=== PATIENT | female | born 1975 | race Caucasian/White ===

== ENCOUNTER 2023-07-13 13:51 | Emergency (ER) | payer OTHER, SELFPAY ==
--- NOTE | ~2023-07-13 | CT_ITS ---
EXAMINATION: CT abdomen pelvis wo con DATE: 07/13/2023 17:49 INDICATION: Right renal stone presenting with right flank pain TECHNIQUE: Computed tomography (CT) of the abdomen and pelvis was performed without intravenous contr ast. Automated exposure control and iterative reconstruction technique were employed. The dose-length product was 344.38 mGy-cm. COMPARISON: None FINDINGS: Normal discoid atelectasis at the posterior sulcus of the right lower lobe. Heart size is normal. No pericardial or pleural effusion. Liver, gallbladder, spleen, pancreas and bilateral adrenal glands ar e normal. There is bilateral renal medullary nephrocalcinosis with 2 mm nonobstructing stone at an up per pole calyx of the left kidney. 4.2 cm cyst at the lower pole of the left kidney. No ureteral ston es or hydronephrosis. Bladder is normal. Bowels including the appendix are normal. There are likely t ubal ligation rings along the left and right broad ligaments. Uterus and bilateral adnexa are otherwi se unremarkable. Pessary versus contraceptive ring and the vaginal vault. No free intraperitoneal gas or fluid. No pathologically enlarged abdominal or pelvic lymphadenopathy. Mild thoracic and lumbar s pondylosis. Right-sided L5 pars interarticularis defect. Osseous fusion across the pubic symphysis. IMPRESSION: 1. Bilateral renal medullary nephrocalcinosis with 2 mm nonobstructing left renal stone. No ureteral stones, hydronephrosis or other acute intra-abdominal/pelvic process. Reviewed, dictated and finalized at location [facility]. [facility] IMPRESSION: 1. Bilateral renal medullary nephrocalcinosis with 2 mm nonobstructing left asia al stone. No ureteral stones, hydronephrosis or other acute intra-abdominal/pel kristy process.
[2023-07-13 14:22] LABS: Basophils Absolute Auto 0.1 K/mm3 (0.0-0.1); Eosinophils Absolute Auto 0.1 K/mm3 (0-0.3); Eosinophils Percent Auto 1.4 % (0-4.4); Hematocrit 45.2 % (37.0-47.0); Immature Granulocyte Absolute 0.01 K/mm3 (0.00-0.031); Immature Granulocyte Percent A 0.1 % (0-0.5); Lymphocytes Absolute Auto 2.28 K/mm3 (0.9-3.2); Lymphocytes Percent Auto 32.5 % (18.3-44.2); Mean Corpuscular Hemoglobin 27.2 pg (26-34); Mean Corpuscular Volume 87.8 fl (80-100); Mean Platelet Volume 11.4 fl (7.4-10.4); Monocytes Absolute Auto 0.6 K/mm3 (0.1-0.6); Monocytes Percent Auto 7.8 % (2.6-8.5); Neutrophils Percent Auto 57.2 % (45.5-73.1); Platelet Count Result 254 k/mm3 (150-375); Red Blood Count 5.15 M/mm3 (4.2-5.4); Red Cell Distribution Width 14.6 % (11.5-14.5)
[2023-07-13 14:39] LABS: Platelet Estimate Adequate (Adequate)
[2023-07-13 14:40] LABS: Appearance Urine Clear (Clear); Bacteria Urine 1+ /hpf; Bilirubin Urine Negative (Negative); Blood Urine 2+ (Negative); Color Urine Yellow (Yellow); Glucose Urine UA Negative (Negative); Ketones Urine Negative (Negative); Leukocyte Esterase Ur Negative LEU/UL (Negative); Nitrate Urine Negative (Negative); Non Pathogenic Casts 0-2; Protein Urine Negative (Negative); Specific Grav Ur 1.026 (1.001-1.035); Squamous Epithelial Cell Urine Few /hpf (Few); Urobilinogen Urine 0.2 mg/dL (<2.0); WBC Urine 0-5 /hpf; pH Urine 6.5 (5.0-9.0)
[2023-07-13 14:40] LABS: Anisocytosis 1+ (NORMAL); Hypochromasia 1+ (NORMAL); Schistocytes None Seen (NORMAL)
[2023-07-13 14:41] LABS: Giant Platelets Present
[2023-07-13 14:45] LABS: Add Urine Microscopic? YES
[2023-07-13 15:01] LABS: Alanine Aminotransferase 60 U/L (6-35); Albumin Level 4.6 g/dL (3.5-5.1); Alkaline Phosphatase 89 U/L (38-126); Anion Gap 10 mmol/L (8-16); Aspartate Amino Transferase 38 U/L (14-36); Bilirubin,Total 0.5 mg/dL (0.2-1.3); Blood Urea Nitrogen 15 mg/dL (7-17); Calcium 9.6 mg/dL (8.4-10.2); Carbon Dioxide 29 mmol/L (22-30); Chloride 100 mmol/L (98-107); Estimated CRCL calculation 105 ml/min; Estimated Glomerular Filt Rate > 60; Glucose 93 mg/dL (65-110); Potassium 4.5 mmol/L (3.4-5.0); Sodium 139 mmol/L (137-145)
--- NOTE | 2023-07-13 17:14 | ED.FEMALEGU ---
HPI - Female Genitourinary General Chief complaint: Urogenital-Female Stated complaint: kidney infection Time Seen by Provider: 07/13/23 17:01 History of Present Illness HPI Narrative: 47-year-old female with reported history of pyelonephritis and kidney stones, s/p tubal ligation reports for evaluation for right-sided flank pain for the past 4-5 days. LMP 07/07/2023, patient is currently still on it. It is unsure if the flank pain is secondary to pyelonephritis, kidney stone, or menstrual cramps. She reports associated right-sided abdominal pain. She denies nausea, vomiting, fever, chest pain or shortness of breath. States she has had a couple episodes of soft stools the past few days. Patient states the timing of her periods have become more irregular which she is attributing to menopause. She states her flow is unchanged, she does not wear pads or tampons but uses a flex and states she only needs to change it once per day which is her baseline. She denies dysuria, no hematuria. She does report urinary frequency. Related Data Allergies Allergy/AdvReac Type Severity Reaction Status Date / Time latex Allergy Swelling Verified 07/13/23 14:01 Review of Systems Review of Systems: CONSTITUTIONAL: Denies fever, chills, or sweats. EYES: Denies visual changes, redness, or discharge. ENT: Denies rhinorrhea, congestion, sore throat, or otalgia. CARDIOVASCULAR: Denies chest pain, palpitations, or edema. RESPIRATORY: Denies cough or dyspnea. GASTROINTESTINAL: See HPI GENITOURINARY: See HPI SKIN: Denies rash or itching. MUSCULOSKELETAL: See HPI NEUROLOGIC: Denies headache, numbness, or weakness. PSYCHIATRIC: Denies anxiety or depression. Exam Narrative: GENERAL: Well-appearing, well-nourished, and in no acute distress. Patient resting comfortably in exam bed. She is pleasant and conversational. HEAD: Normocephalic, atraumatic. EYES: PERRLA and EOMI. ENT: Nares clear, no rhinorrhea or epistaxis. Mucous membranes moist. NECK: Supple. CHEST: Clear to auscultation. No respiratory distress. HEART: Regular rate and rhythm. No murmur heard. Normal peripheral pulses. ABDOMEN: Normoactive bowel sounds. Abdomen soft with tenderness in the right lower quadrant. No guarding, rebound or rigidity. No CVA tenderness. No overlying skin changes. BACK: No midline thoracolumbar spinous tenderness, step-offs or deformities. Tenderness to the right lumbar paraspinous muscles on palpation. No overlying skin changes. EXTREMITIES: Normal range of motion. No edema. SKIN: Warm, dry, no rash. NEURO: No focal deficits. Alert and oriented x3 Course Vital Signs Vital signs: Vital Signs Temperature 98.1 F 07/13/23 18:24 Pulse Rate 71 07/13/23 18:24 Respiratory Rate 18 07/13/23 18:24 Blood Pressure 118/71 07/13/23 18:24 Pulse Oximetry 100 07/13/23 18:24 Temperature 98.1 F 07/13/23 18:24 Pulse Rate 71 07/13/23 18:24 Respiratory Rate 18 07/13/23 18:24 Blood Pressure 118/71 07/13/23 18:24 Pulse Oximetry 100 07/13/23 18:24 MDM - Female Genitourinary MDM Narrative Medical decision making narrative: 47-year-old female with a self-reported history of pyelonephritis and kidney stones reports for evaluation for right low back pain times 4-5 days. See HPI for further history. Vitals stable, she is afebrile. Exam significant for the above. CBC without leukocytosis or anemia. Chemistries are largely unremarkable other than mildly elevated AST and ALT. No prior for comparison. Remainder of LFTs are unremarkable. Likely secondary to hepatic steatosis. Urinalysis with hematuria, not consistent with UTI. Hematuria secondary to current menstruation versus ureterolithiasis. CT obtained showing showing no acute intra-abdominal or pelvic process. 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 Labs and imaging discussed with the patient. She receiv
[2023-07-13] MEDS: KETOROLAC 30 MG/ML VIAL (*BKC) IM (18:23)
[2023-07-13] MEDS: CYCLOBENZAPRINE HCL 10 MG TABLET PO (18:23)
[2023-07-13] MEDS: LIDOCAINE 5% PATCH 1 PATCH TRANSDERM (18:23)
[2023-07-13 18:24] VITALS: BP 118/71; PULSE 71; RESP 18; TEMP 36.7; O2SAT 100
== END 2023-07-13 19:00 | disposition home or self-care (01) ==
PROVIDERS: Emergency Medicine; Emergency Provider Physician Assistant
DX: R10.9 Unspecified abdominal pain (principal); R79.89 Other specified abnormal findings of blood chemistry
CPT/HCPCS: 36415; 74176; 80053; 81001; 85025; 99284; A9270; J1885